=== PATIENT | female | born 1990 | race Caucasian/White ===

== ENCOUNTER 2017-06-13 22:08 | Emergency (ER) | payer OTHER ==
[~2017-06-13] VITALS: Ht 162.6 cm; Wt 59.0 kg
[~2017-06-13 22:08] MED LIST: AMOXICILLIN875 MG PO; BACTRIM DS TABL1 TAB PO; BACTROBAN15 GM TOP; BENZONATATE PO; BIRTH CONTROL PILL PO; DICLOFENAC PO; FEOSOL PO; FLEXERIL PO; KEFLEX500 MG PO; NO MEDICATIONS; PRENATAL MULITV1 TAB PO; VICODIN 5/500 T1 TAB PO
[2017-06-13 22:34] LABS: URINE SOURCE CLEAN CATCH
[2017-06-13 22:37] LABS: URINE APPEARANCE HAZY; URINE BILIRUBIN NEG (NEG); URINE BLOOD TRACE-INTACT (NEG); URINE COLOR YELLOW; URINE GLUCOSE NEG (NORM); URINE KETONE NEG (NEG); URINE LEUKOCYTE ESTERASE 3+ (NEG); URINE NITRATE POS (NEG); URINE PROTEIN 1+ (NEG); URINE SPECIFIC GRAVITY 1.015 (1.003-1.035)
[2017-06-13 22:39] LABS: MICRO INDICATED? YES
[2017-06-13 22:40] LABS: URINE BACTERIA 2+ (NEG); URINE MUCUS PRESENT; URINE SQUAMOUS EPITHELIAL CELL OCCAS /[HPF]; URINE TRANSITIONAL EPI CELLS FEW /[HPF]; URINE WBC 50-100 /[HPF] (0-5)
[2017-06-13 22:48] LABS: AMPHETAMINE POS (NEG); BARBITURATES NEG (NEG); BENZODIAZEPINES NEG (NEG); COCAINE NEG (NEG); MARIJUANA NEG (NEG); OPIATES POS (NEG); TRICYCLIC ANTIDEPRESSANTS NEG (NEG); U METHADONE NEG (NEG)
[2017-06-15 22:38] LABS: CHLAMYDIA TRACH Detected (Not Detected); N GONOR Not Detected (Not Detected)
== END 2017-06-13 23:42 | disposition home or self-care (01) ==
LOC: SED 22:08
PROVIDERS: Physician Assistant
DX: N39.0 Urinary tract infection, site not specified (principal); F17.200 Nicotine dependence, unspecified, uncomplicated
CPT/HCPCS: 80307; 81003; 84703; 87210; 87491; 87591; 87808; 87905; 96372; 99283; J0696